=== PATIENT | female | born 1955 | race Caucasian/White ===

== ENCOUNTER 2019-02-28 00:04 | Observation (INO) ==
--- NOTE | 2019-02-28 00:20 | Emergency Department Note ---
Disposition Clinical Impression: Chest pain Qualifiers: Chest pain type: unspecified Qualified Code(s): R07.9 - Chest pain, unspecified Disposition: Admitted As Inpatient Condition: Good Time of Disposition: 02:26 (accepted by Dr. Whelan) Chest Pain HPI - General Chief Complaint: ED Chest Pain Stated Complaint: RA Flare, CP Time Seen by Provider: 02/28/19 00:19 Source: patient Mode of arrival: ambulatory Limitations: no limitations Vital Signs Reviewed: Yes Nursing Notes Reviewed: Yes - History of Present Illness HPI Narrative: Patient is a 63-year-old female presenting with chest pain. Patient with known history of CAD status post stenting, hypertension, hyperlipidemia, DM, as well as rheumatoid arthritis. Patient states for the past 3 days she has been having intermittent episodes of chest heaviness described to be in the left side of her chest, comes on with exertion as well as rest, does not seem to worsen with exertion. Results on its own or with nitroglycerin. Patient states that today around 1999, she began to have worsening chest heaviness, she describes to be on the left side, she took a total of 3 nitroglycerin which resolved her pain. She states she had slight shortness of breath during this time, slight nausea without vomiting. No recent fevers, chills or cough. No abdominal pain. No urinary or bowel changes. Patient also states that she has been having a rheumatoid arthritis flare, she will had prior been on immunologic medications for the past 5 years however one month ago she was taken off this medication secondary to side effects. For the past few weeks she has been having joint pain and aches, she is currently on pain medication, she is been taking this as needed, she states she will not take any steroids. 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 Severity scale (1-10): 4 - Related Data Home Medications Medication Instructions Recorded Confirmed Aspirin Enteric Coated [Aspirin EC] 81 mg PO DAILY 03/25/17 02/28/19 Atorvastatin Calcium [Lipitor] 80 mg PO HS 03/25/17 02/28/19 Cetirizine HCl [All Day Allergy] 10 mg PO DAILY 03/25/17 02/28/19 Cholecalciferol (D-3) [Vitamin D] 2,000 unit PO DAILY 03/25/17 02/28/19 Docusate [Colace] 100 mg PO BID 03/25/17 02/28/19 Fluticasone Propionate Nasal 1 spr NS DAILY PRN 03/25/17 02/28/19 [Flonase] Folic Acid 1 mg PO DAILY 03/25/17 02/28/19 Insulin Glargine [Lantus] 30 unit SQ 2100 03/25/17 02/28/19 Insulin LISPRO [HumaLOG] 5 units SQ TID PRN 03/25/17 02/28/19 Isosorbide MONOnitrate (24 HR) 60 mg PO DAILY 03/25/17 02/28/19 [Imdur] Levothyroxine [Synthroid] 125 mcg PO DAILY 03/25/17 02/28/19 Lidocaine Patch [Lidoderm 5% patch] 1 each TP DAILY 03/25/17 02/28/19 Metoprolol XL (24 HR) Succ [Toprol 25 mg PO DAILY 03/25/17 02/28/19 XL] Montelukast [Singulair] 10 mg PO HS 03/25/17 02/28/19 Nitroglycerin [Nitrostat] 0.4 mg SL Q5M PRN 03/25/17 02/28/19 OxyCODONE/APAP 7.5/325 [Percocet 1 each PO Q6H PRN 03/25/17 02/28/19 7.5/325 MG] Tofacitinib Citrate [Xeljanz Xr] 11 mg PO DAILY 03/25/17 02/28/19 Allergies Allergy/AdvReac Type Severity Reaction Status Date / Time aripiprazole [From Abilify] AdvReac See Verified 02/28/19 00:28 Comments bupropion [From Wellbutrin] AdvReac See Verified 02/28/19 00:28 Comments latex AdvReac Rash Verified 02/28/19 00:28 piroxicam [From Feldene] AdvReac Muscle Pain Verified 02/28/19 00:28 All systems ED: reviewed and negative except as stated. Review of Systems: As Per HPI Constitutional: Denies: fever, chills ENT ED: Denies: congestion Cardiovascular: Reports: chest pain, dyspnea on exertion. Denies: palpitations, syncope Respiratory: Reports: dyspnea. Denies: cough, wheezes, hemoptysis, sputum production Gastrointestinal: Reports: nausea. 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 No apparent distress. Follow commands. Appears stated age. Neck: No JVD. Trachea midline. Neck supple. Eyes: PERRL. No scleral icterus. HENT: Normocephalic and atraumatic. Moist mucus membranes. Cardiovascular: Regular rate and rhythm. Normal S1 and S2. No murmurs appreciated. Normal capillary refill. Extremities well perfused with 2+ distal pulses bilaterally. No edema. Pulmonary: Normal and equal breath sounds bilaterally, anteriorly and posteriorly. No wheezes, rales, or rhonchi. Not in respiratory distress. Speaks in full sentences. Abdomen: Soft, nondistended, without tenderness. No bruits or masses. No guarding or rebound. Neuro: Alert and oriented x3. No slurred speech. No focal deficits noted. Skin: No rashes noted on visualized skin. Musculoskeletal: No bony abnormalities visualized. Moves all extremities. Patient palpation throughout the joints including the shoulders, wrists, ankles and feet Psych: Normal mood. Pleasant. Makes appropriate eye contact. - General Limitations: no limitations General appearance: alert, in no apparent distress Course Vital Signs Temperature 98.4 F 02/28/19 00:06 Pulse Rate 81 02/28/19 00:06 Respiratory Rate 18 02/28/19 00:06 Blood Pressure 138/69 02/28/19 00:06 O2 Sat by Pulse Oximetry 100 02/28/19 00:06 Temperature 98.4 F 02/28/19 00:06 Pulse Rate 81 02/28/19 00:06 Respiratory Rate 18 02/28/19 00:06 Blood Pressure 138/69 02/28/19 00:06 O2 Sat by Pulse Oximetry 100 02/28/19 00:06 Oxygen Delivery Oxygen Delivery Room Air Chest Pain - MDM Narrative Medical decision making narrative: Patient is a 63-year-old feel presenting with chest pain. Patient with history of CAD status post stent, hypertension, hyperlipidemia as well as rheumatoid arthritis. Given aspirin. On examination she is alert and oriented 3, in no acute distress. EKG shows no acute ischemic changes. Chest x-ray shows no ac [place] cardiopulmonary findings. Laboratory work including CBC, BMP and troponin are within normal limits. Patient with no history of DVT, PE, recent leg swelling, long car ride, malignancy. She denies pleuritic chest pain. Given patient's heart score of 5-6, with highly concerning history and story, feels that the patient to be admitted at this point in time for ACS rule out. Patient has otherwise remained stable here in the ER. - Differential Diagnosis Likely: stable angina, unstable angina pectoris, atypical chest pain, st elevation myocardial infraction, costalchondritis, chest pain - Medical Records Medical records reviewed: Yes I reviewed the patient's medical records. - Lab Data Lab results reviewed: Yes I reviewed the patient's lab results. Result diagrams: 02/28/19 00:30 02/28/19 00:30 Lab Results 02/28/19 02/28/19 02/28/19 Range/Units 00:30 00:30 00:30 WBC 6.3 (4.3-11.1) K/mcL RBC 4.22 (3.82-4.97) M/mcL Hgb 12.4 (11.5-15.4) g/dL Hct 37.2 (35.3-44.9) % MCV 88.2 (83.0-100.0) fL MCH 29.4 (28.0-33.3) pg MCHC 33.3 (31.6-35.5) g/dL RDW 12.6 (11.5-14.5) % Plt Count 352 (140-400) K/mcL MPV 10.4 (9.4-12.4) fL Immature Gran % 0.3 (0-4) % Seg Neutrophils % 71.6 % Lymphocytes % 17.5 % Monocytes % 8.9 % Eosinophils % 1.4 % Basophils % 0.3 % Neutrophils # 4.5 (1.6-8.9) K/mcL Lymphocytes # 1.1 (0.6-4.6) K/mcL Monocytes # 0.6 (0.0-1.3) K/mcL Eosinophils # 0.1 (0.0-0.6) K/mcL Basophils # 0.0 (0.0-0.2) K/mcL Sodium 134 L (136-145) mEq/L Potassium 3.9 (3.5-5.1) mEq/L Chloride 98 (98-107) mEq/L Carbon Dioxide 28 (23-29) mEq/L BUN 14 (8-23) mg/dL Creatinine 1.19 (0.60-1.20) mg/dL Est GFR ( Amer) 56 L (> 60) Est GFR (Non-Af Amer) 46 L (> 60) BUN/Creatinine Ratio 12 (6-26) Glucose 277 H (70-105) mg/dL Calculated Osmolality 288 (280-300) Calcium 9.5 (8.6-10.3) mg/dL Troponin I < 0.03 (< 0.04) ng/mL Urine Color (Yellow) Urine Clarity (Clear) Urine pH (5.0-8.0) pH Units Ur Specific [place] (1.010-1.025) Urine Protein (Neg-Trace) mg/dL Urine Glucose (UA) (Normal) mg/dL Urine Ketones (Negative) mg/dL Urine Blood (Negative) Urine Nitrite (Negative) Urine Bilirubin (Negative) Urine Urobilinogen (Normal) mg/dL Ur Leukocyte Esterase (Negative) Urine Microscopic RBC (0-3) per hpf Urine Microscopic WBC (0-3) per hpf Ur Squamous Epith Cells (None-Few) per lpf Urine Bacteria (None-Few) per hpf Hyaline Casts (None-Few) per lpf 02/28/19 Range/Units 00:57 WBC (4.3-11.1) K/mcL RBC (3.82-4.97) M/mcL Hgb (11.5-15.4) g/dL Hct (35.3-44.9) % MCV (83.0-100.0) fL MCH (28.0-33.3) pg MCHC (31.6-35.5) g/dL RDW (11.5-14.5) % Plt Count (140-400) K/mcL MPV (9.4-12.4) fL Immature Gran % (0-4) % Seg Neutrophils % % Lymphocytes % % Monocytes % % Eosinophils % % Basophils % % Neutrophils # (1.6-8.9) K/mcL Lymphocytes # (0.6-4.6) K/mcL Monocytes # (0.0-1.3) K/mcL Eosinophils # (0.0-0.6) K/mcL Basophils # (0.0-0.2) K/mcL Sodium (136-145) mEq/L Potassium (3.5-5.1) mEq/L Chloride (98-107) mEq/L Carbon Dioxide (23-29) mEq/L BUN (8-23) mg/dL Creatinine (0.60-1.20) mg/dL Est GFR ( Amer) (> 60) Est GFR (Non-Af Amer) (> 60) BUN/Creatinine Ratio (6-26) Glucose (70-105) mg/dL Calculated Osmolality (280-300) Calcium (8.6-10.3) mg/dL Troponin I (< 0.04) ng/mL Urine Color Yellow (Yellow) Urine Clarity Cloudy A (Clear) Urine pH 5.5 (5.0-8.0) pH Units Ur Specific [place] 1.027 H (1.010-1.025) Urine Protein Negative (Neg-Trace) mg/dL Urine Glucose (UA) >=1000 H (Normal) mg/dL Urine Ketones Negative (Negative) mg/dL Urine Blood Negative (Negative) Urine Nitrite Negative (Negative) Urine Bilirubin Negative (Negative) Urine Urobilinogen Normal (Normal) mg/dL Ur Leukocyte Esterase Large H (Negative) Urine Microscopic RBC 3-5 H (0-3) per hpf Urine Microscopic WBC TNTC H (0-3) per hpf Ur Squamous Epith Cells Many H (None-Few) per lpf Urine Bacteria Few (None-Few) per hpf Hyaline Casts None Seen (None-Few) per lpf - Radiology Data Radiology results reviewed: Yes I reviewed the patient's radiology results. Chest X-Ray 02/28/19 01:20 IMPRESSION: No acute cardiopulmonary disease. D/ / Nghia Mcconnell MD / Nghia Mcconnell MD Interpreting Provider: Nghia Mcconnell MD - EKG Data EKG attestation: Yes I reviewed and interpreted this EKG. EKG results narrative: EKG obtained at 0015 with ventricular rate of 75, regular rhythm, right axis deviation with right bundle branch block, no ST segment elevation, depression, there are Q waves in lead 2, 3 and aVF, compared to old EKG performed in 7, compares to be completely unchanged. Heart Score - Score History: Highly Suspicious EKG: Non Specific repolarisation Disturbance Age: 45-65 Risk Factors: Equal/Greater than 3 risk factor or history of atherosclerotic disease Troponin: Less than normal limit HEART Score Total: 6
[2019-02-28 01:07] LABS: Basophils % 0.3 %; Eosinophils # 0.1 K/mcL (0.0-0.6); Eosinophils % 1.4 %; Hematocrit 37.2 % (35.3-44.9); Hemoglobin 12.4 g/dL (11.5-15.4); Immature Granulocytes % 0.3 % (0-4); Lymphocytes # 1.1 K/mcL (0.6-4.6); Lymphocytes % 17.5 %; Mean Corpuscular HGB Conc 33.3 g/dL (31.6-35.5); Mean Corpuscular Hemoglobin 29.4 pg (28.0-33.3); Mean Corpuscular Volume 88.2 fL (83.0-100.0); Mean Platelet Volume 10.4 fL (9.4-12.4); Monocytes # 0.6 K/mcL (0.0-1.3); Monocytes % 8.9 %; Neutrophils # 4.5 K/mcL (1.6-8.9); Platelet Count 352 K/mcL (140-400); Red Blood Count 4.22 M/mcL (3.82-4.97); Red Cell Distribution Width 12.6 % (11.5-14.5); Segmented Neutrophils % 71.6 %; White Blood Count 6.3 K/mcL (4.3-11.1)
[2019-02-28 01:20] LABS: Bilirubin,Urine Negative (Negative); Blood,Urine Negative (Negative); Clarity,Urine Cloudy (Clear); Color,Urine Yellow (Yellow); Glucose,Urine (UA) >=1000 mg/dL (Normal); Ketones,Urine Negative (Negative); Leukocyte Esterase,Urine Large (Negative); Nitrite,Urine Negative (Negative); PH,Urine 5.5 pH Units (5.0-8.0); Protein,Urine Negative (Neg-Trace); Specific Gravity,Urine 1.027 (1.010-1.025); Urobilinogen,Urine Normal (Normal)
[2019-02-28 01:21] LABS: Bacteria,Urine Few per hpf (None-Few); Hyaline Casts,Urine None Seen per lpf (None-Few); Squamous Epithelial Cell,Urine Many per lpf (None-Few); WBC,Urine TNTC per hpf (0-3)
[2019-02-28 01:28] LABS: Calcium 9.5 mg/dL (8.6-10.3); Potassium 3.9 mEq/L (3.5-5.1)
[2019-02-28] MEDS ORDERED: Aspirin 81 MG TAB.CHEW PO ONE (02:41)
--- NOTE | 2019-02-28 02:46 | Emergency Department Note ---
Disposition Clinical Impression: Chest pain Qualifiers: Chest pain type: unspecified Qualified Code(s): R07.9 - Chest pain, unspecified Disposition: Admitted As Inpatient Condition: Good Referrals: NONE,PCP [Primary Care Provider] - Forms: ED Satisfaction Letter Time of Disposition: 02:26 General Adult HPI - General Chief complaint: ED Chest Pain Stated complaint: RA Flare, CP Time Seen by Provider: 02/28/19 00:19 Source: patient Mode of arrival: ambulatory Limitations: no limitations Nursing Notes Reviewed: Yes Vital Signs Reviewed: Yes - History of Present Illness Pain Scale: 4 - Related Data Home Medications Medication Instructions Recorded Confirmed Aspirin Enteric Coated [Aspirin EC] 81 mg PO DAILY 03/25/17 02/28/19 Atorvastatin Calcium [Lipitor] 80 mg PO HS 03/25/17 02/28/19 Cetirizine HCl [All Day Allergy] 10 mg PO DAILY 03/25/17 02/28/19 Cholecalciferol (D-3) [Vitamin D] 2,000 unit PO DAILY 03/25/17 02/28/19 Docusate [Colace] 100 mg PO BID 03/25/17 02/28/19 Fluticasone Propionate Nasal 1 spr NS DAILY PRN 03/25/17 02/28/19 [Flonase] Folic Acid 1 mg PO DAILY 03/25/17 02/28/19 Insulin Glargine [Lantus] 30 unit SQ 2100 03/25/17 02/28/19 Insulin LISPRO [HumaLOG] 5 units SQ TID PRN 03/25/17 02/28/19 Isosorbide MONOnitrate (24 HR) 60 mg PO DAILY 03/25/17 02/28/19 [Imdur] Levothyroxine [Synthroid] 125 mcg PO DAILY 03/25/17 02/28/19 Lidocaine Patch [Lidoderm 5% patch] 1 each TP DAILY 03/25/17 02/28/19 Metoprolol XL (24 HR) Succ [Toprol 25 mg PO DAILY 03/25/17 02/28/19 XL] Montelukast [Singulair] 10 mg PO HS 03/25/17 02/28/19 Nitroglycerin [Nitrostat] 0.4 mg SL Q5M PRN 03/25/17 02/28/19 OxyCODONE/APAP 7.5/325 [Percocet 1 each PO Q6H PRN 03/25/17 02/28/19 7.5/325 MG] Tofacitinib Citrate [Xeljanz Xr] 11 mg PO DAILY 03/25/17 02/28/19 Allergies Allergy/AdvReac Type Severity Reaction Status Date / Time aripiprazole [From Abilify] AdvReac See Verified 02/28/19 00:28 Comments bupropion [From Wellbutrin] AdvReac See Verified 02/28/19 00:28 Comments latex AdvReac Rash Verified 02/28/19 00:28 piroxicam [From Feldene] AdvReac Muscle Pain Verified 02/28/19 00:28 Constitutional: Denies: fever, chills ENT ED: Denies: congestion Cardiovascular: Reports: chest pain, dyspnea on exertion. Denies: palpitations, syncope Respiratory: Reports: dyspnea. Denies: cough, wheezes, hemoptysis, sputum production Gastrointestinal: Reports: nausea. 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 - Social History Smoking Status: Former smoker Smokeless Tobacco Status: No Alcohol use: Reports: none Drug use: Reports: none Physical Exam - General Limitations: no limitations General appearance: alert, in no apparent distress Course Vital Signs Temperature 98.4 F 02/28/19 00:06 Pulse Rate 81 02/28/19 00:06 Respiratory Rate 18 02/28/19 00:06 Blood Pressure 138/69 02/28/19 00:06 O2 Sat by Pulse Oximetry 100 02/28/19 00:06 Temperature 98.4 F 02/28/19 00:06 Pulse Rate 81 02/28/19 00:06 Respiratory Rate 18 02/28/19 00:06 Blood Pressure 138/69 02/28/19 00:06 O2 Sat by Pulse Oximetry 100 02/28/19 00:06 Oxygen Delivery Oxygen Delivery Room Air Medical Decision Making - Medical Records Medical records reviewed: Yes I reviewed the patient's medical records. - Lab Data Lab results reviewed: Yes I reviewed the patient's lab results. Result diagrams: 02/28/19 00:30 02/28/19 00:30 Lab Results 02/28/19 02/28/19 02/28/19 Range/Units 00:30 00:30 00:30 WBC 6.3 (4.3-11.1) K/mcL RBC 4.22 (3.82-4.97) M/mcL Hgb 12.4 (11.5-15.4) g/dL Hct 37.2 (35.3-44.9) % MCV 88.2 (83.0-100.0) fL MCH 29.4 (28.0-33.3) pg MCHC 33.3 (31.6-35.5) g/dL RDW 12.6 (11.5-14.5) % Plt Count 352 (140-400) K/mcL MPV 10.4 (9.4-12.4) fL Immature Gran % 0.3 (0-4) % Seg Neutrophils % 71.6 % Lymphocytes % 17.5 % Monocytes % 8.9 % Eosinophils % 1.4 % Basophils % 0.3 % Neutrophils # 4.5 (1.6-8.9) K/mcL Lymphocytes # 1.1 (0.6-4.6) K/mcL Monocytes # 0.6 (0.0-1.3) K/mcL Eosinophils # 0.1 (0.0-0.6) K/mcL Basophils # 0.0 (0.0-0.2) K/mcL Sodium 134 L (136-145) mEq/L Potassium 3.9 (3.5-5.1) mEq/L Chloride 98 (98-107) mEq/L Carbon Dioxide 28 (23-29) mEq/L BUN 14 (8-23) mg/dL Creatinine 1.19 (0.60-1.20) mg/dL Est GFR ( Amer) 56 L (> 60) Est GFR (Non-Af Amer) 46 L (> 60) BUN/Creatinine Ratio 12 (6-26) Glucose 277 H (70-105) mg/dL Calculated Osmolality 288 (280-300) Calcium 9.5 (8.6-10.3) mg/dL Troponin I < 0.03 (< 0.04) ng/mL Urine Color (Yellow) Urine Clarity (Clear) Urine pH (5.0-8.0) pH Units Ur Specific [place] (1.010-1.025) Urine Protein (Neg-Trace) mg/dL Urine Glucose (UA) (Normal) mg/dL Urine Ketones (Negative) mg/dL Urine Blood (Negative) Urine Nitrite (Negative) Urine Bilirubin (Negative) Urine Urobilinogen (Normal) mg/dL Ur Leukocyte Esterase (Negative) Urine Microscopic RBC (0-3) per hpf Urine Microscopic WBC (0-3) per hpf Ur Squamous Epith Cells (None-Few) per lpf Urine Bacteria (None-Few) per hpf Hyaline Casts (None-Few) per lpf 02/28/19 Range/Units 00:57 WBC (4.3-11.1) K/mcL RBC (3.82-4.97) M/mcL Hgb (11.5-15.4) g/dL Hct (35.3-44.9) % MCV (83.0-100.0) fL MCH (28.0-33.3) pg MCHC (31.6-35.5) g/dL RDW (11.5-14.5) % Plt Count (140-400) K/mcL MPV (9.4-12.4) fL Immature Gran % (0-4) % Seg Neutrophils % % Lymphocytes % % Monocytes % % Eosinophils % % Basophils % % Neutrophils # (1.6-8.9) K/mcL Lymphocytes # (0.6-4.6) K/mcL Monocytes # (0.0-1.3) K/mcL Eosinophils # (0.0-0.6) K/mcL Basophils # (0.0-0.2) K/mcL Sodium (136-145) mEq/L Potassium (3.5-5.1) mEq/L Chloride (98-107) mEq/L Carbon Dioxide (23-29) mEq/L BUN (8-23) mg/dL Creatinine (0.60-1.20) mg/dL Est GFR ( Amer) (> 60) Est GFR (Non-Af Amer) (> 60) BUN/Creatinine Ratio (6-26) Glucose (70-105) mg/dL Calculated Osmolality (280-300) Calcium (8.6-10.3) mg/dL Troponin I (< 0.04) ng/mL Urine Color Yellow (Yellow) Urine Clarity Cloudy A (Clear) Urine pH 5.5 (5.0-8.0) pH Units Ur Specific [place] 1.027 H (1.010-1.025) Urine Protein Negative (Neg-Trace) mg/dL Urine Glucose (UA) >=1000 H (Normal) mg/dL Urine Ketones Negative (Negative) mg/dL Urine Blood Negative (Negative) Urine Nitrite Negative (Negative) Urine Bilirubin Negative (Negative) Urine Urobilinogen Normal (Normal) mg/dL Ur Leukocyte Esterase Large H (Negative) Urine Microscopic RBC 3-5 H (0-3) per hpf Urine Microscopic WBC TNTC H (0-3) per hpf Ur Squamous Epith Cells Many H (None-Few) per lpf Urine Bacteria Few (None-Few) per hpf Hyaline Casts None Seen (None-Few) per lpf - Radiology Data Radiology results reviewed: Yes I reviewed the patient's radiology results. Chest X-Ray 02/28/19 01:20 IMPRESSION: No acute cardiopulmonary disease. D/ / Nghia Mcconnell MD / Nghia Mcconnell MD Interpreting Provider: Nghia Mcconnell MD - EKG Data EKG #1 EKG attestation: Yes I reviewed and interpreted this EKG. EKG results narrative: EKG shows normal sinus rhythm with ventricular rate of 75. Right bundle branch block. No significant ST segment elevation or depression. No arrhythmia or ectopy. Unchanged from prior EKG dated 03/07/2017. Attestation Statement - Attestation Attestation: I, Luis Manuel Kiran MD, personally evaluated this patient and discussed their management with the resident physician. I reviewed the resident's note and agree with the documented findings, medical decision making, and plan of care. I reviewed the residents documentation and agree with the residents assessment and plan of care. I have personally had face to face time with the patient. I personally supervised and was present for the galvez/critical portions of the following procedures completed by the resident: EKG interpretation. 63-year-old female presents to the emergency department with a complaint of intermittent chest pain over the past 3 days prior to arrival. She describes the pain as a pressure or heaviness in her mid chest. Patient does have a prior history of AL and coronary artery stents. She is diabetic. She also complains of having a flare of her rheumatoid arthritis. She had to stop her medications about a month ago because of adverse side effects. Since then she has had increasing pain primarily in her hands and wrist and shoulders and feet. She has taken nitroglycerin each day over the past 3 days. This evening the pain was worse and she took 3 nitroglycerin which did relieve the discomfort. On examination patient is a well-developed well-nourished female in no acute distress. She is alert and oriented 3. There is no cyanosis or diaphoresis. Chest is nontender to palpation. Breath sounds are clear and equal bilaterally. Heart regular rate and rhythm. Abdomen soft and nontender with normal bowel sounds. EKG shows normal sinus rhythm with ventricular rate of 75. Right bundle branch block. No significant ST segment elevation or depression. No arrhythmia or ectopy. Unchanged from prior EKG dated 03/07/2017. Chest x-ray negative. Labs reviewed. Troponin normal. The hospitalist, Dr. Whelan, was consulted and accepted admission of the patient.
[2019-02-28] MEDS ORDERED: Naloxone 0.4 MG/ML INJ IVP PRN (09:22)
--- NOTE | 2019-02-28 09:27 | Internal Med History&Physical ---
Date of Encounter: 02/28/19 Time of Encounter: 08:15 Internal Medicine - H&P: HPI Admitted From: Emergency Dept Plans for Post Hospital Care: Home History of present illness: Ms. Serna is a 63 year old female history of asthma, CHF, CAD, diabetes, fibromyalgia, prior history of KS, and hypothyroidism as well as rheumatoid arthritis who presented to the ED with complaints of chest discomfort which she describes as heaviness and pain for 3 days. She stated the pain is localized to the left side of her chest similar to her prior episodes of KS as such she tried nitroglycerin tablets. She stated the pain lasted 20 minutes and she to 3 nitro glycerin tablets which abated the pain. Patient stated that overall her rheumatoid arthritis has been flaring because have physician discontinued her Xeljanz about a month ago due to her complaints of having hair loss and scalp blisters. She denies any recent steroid therapy but reports pain in bilateral shoulders and hand with associated stiffness. Multivitamin she woke up by the ED was unremarkable CBC, BMP revealed mild hyponatremia as well as elevated blood glucose, and had initial troponin was negative. Patient UA does reveal glucosuria, high specific gravity large leukocyte esterase and too numerous to count WBCs however she denies dysuria. Other work up at the ED was an EKG which revealed sinus rhythm with right bundle branch block which is unchanged from EKG dated 02/08/2015 which also had the right bundle branch block and had chest x- ray was unremarkable with no acute cardiopulmonary abnormalities. Patient stated also that she is on a insulin pump for her diabetes and that basal rates was currently being adjusted however she feels that her blood sugar has been elevated and her diabetes uncontrolled. She was initially unwilling to come off her insulin pump so that we could manage her diabetes per protocol. Upon further deliberations she is agreeable to come off the insulin pump so we can manage her diabetes with insulin basal short-acting subcutaneously per patsy col Past Med Surg Social Fam HX - Past Medical History Medical history: asthma, CHF, coronary artery disease, diabetes, fibromyalgia, myocardial infarction, RA, thyroid disease, other Additional medical history: neuropathy, retinopathy, gastroparesis Psychiatric history: no psych history - Past Surgical History Surgical History: , cholecystectomy Additional surgical history: Heart cath, cardiac stent - Social History Smoking Status: Former smoker Smokeless Tobacco Status: No Alcohol use: none Drug use: none - Family History Mother Living Status: Hx Family Respiratory Disorders: Yes (COPD) Father Living Status: Hx Family Cancer: Yes (prostate, lung) Internal Medicine - H&P: Meds Aspirin Enteric Coated [Aspirin EC] 81 mg PO DAILY 03/25/17 [History] Atorvastatin Calcium [Lipitor] 80 mg PO HS 03/25/17 [History] Cetirizine HCl [All Day Allergy] 10 mg PO DAILY 03/25/17 [History] Cholecalciferol (D-3) [Vitamin D] 2,000 unit PO DAILY 03/25/17 [History] Docusate [Colace] 100 mg PO BID 03/25/17 [History] Fluticasone Propionate Nasal [Flonase] 1 spr NS DAILY PRN 03/25/17 [History] Folic Acid 1 mg PO DAILY 03/25/17 [History] Insulin Glargine [Lantus] 30 unit SQ 2100 03/25/17 [History] Insulin LISPRO [HumaLOG] 5 units SQ TID PRN 03/25/17 [History] Isosorbide MONOnitrate (24 HR) [Imdur] 60 mg PO DAILY 03/25/17 [History] Levothyroxine [Synthroid] 125 mcg PO DAILY 03/25/17 [History] Lidocaine Patch [Lidoderm 5% patch] 1 each TP DAILY 03/25/17 [History] Montelukast [Singulair] 10 mg PO HS 03/25/17 [History] Nitroglycerin [Nitrostat] 0.4 mg SL Q5M PRN 03/25/17 [History] OxyCODONE/APAP 7.5/325 [Percocet 7.5/325 MG] 1 each PO Q6H PRN 03/25/17 [History] Tofacitinib Citrate [Xeljanz Xr] 11 mg PO DAILY 03/25/17 [History] Metoprolol Tartrate 50 mg PO DAILY 02/28/19 [History] Omeprazole [PriLOSEC] 40 mg PO DAILY 02/28/19 [History] Tizanidine HCl [Zanaflex] 4 mg PO TID PRN 02/28/19 [History] hydroCHLOROthiazide [Hydrochlorothiazide] 12.5 mg PO DAILY 02/28/19 [History] Allergy/AdvReac Type Severity Reaction Status Date / Time aripiprazole [From Abilify] AdvReac See Verified 02/28/19 00:28 Comments bupropion [From Wellbutrin] AdvReac See Verified 02/28/19 00:28 Comments latex AdvReac Rash Verified 02/28/19 00:28 piroxicam [From Feldene] AdvReac Muscle Pain Verified 02/28/19 00:28 All Systems PM: A 10-system review of systems was performed and is negative for pertinent findings except as documented above in the HPI. Review of systems: GENERAL: Denies fever, chills, admits to fatigue and generalized weakness and malaise DERMATOLOGIC: Denies itch, rash or lesions except for her rheumatic joints HEENT: Denies headache, blurriness, diplopia or decreased visual acuity, ear pain, tinnitus, rhinorrhea, sinus tenderness or sore throat RESPIRATORY: Denies SOB, cough, hemoptysis or pleuritic chest pain CARDIOVASCULAR: Admits to chest pain, denies LE edema, palpitation or syncope GASTRO INTESTINAL: Denies cramps, nausea/vomiting, diarrhea or constipation, melena MUSCULOSKELATAL: Reports muscle pain/weakness, joint tenderness/pain and swelling PSYCH: Denies worsening anxiety, or depression NEURO: Denies vertigo, dizziness, or ataxia GENITURINARY: Denies dysuria, nocturia or urinary incontinence - Constitutional Vitals: Temp Pulse Resp BP Pulse Ox 97.9 F 64 16 104/59 97 02/28/19 06:44 02/28/19 06:44 02/28/19 06:44 02/28/19 06:44 02/28/19 06:44 Exam: GENERAL: NAD, A&O x3, pleasant and conversant SKIN: No skin lesions or rashes, non-jaundiced EYES: EOMI, PERRLA, no sclera icterus HENT: Head atraumatic, no facial asymmetry, frontal and maxillary sinus non- tender, normal hearing, oropharynx and mucosa moist and without any exudates NECK: No cervical lymphadenopathy, trachea midline, thyroid is palpable does not appear enlarged LUNGS: vesicular breath sounds, clear to auscultation, no wheeze, rhonchi, rales or crackles. Non labored respirations HEART: Normal rate and rhythm, no murmurs or rubs, left-sided chest pain was reproducible ABDOMEN: soft, non-tender, non-distended, bowel sounds x 4 normoactive EXTRMITIES: No LE asymmetry, bilateral ulna deviation noted, soft tissue swelling noted in the PIP joints bilaterally, left foot second and third digits deformities noted, No LE edema, pedal pulses 1+ and radial pulses 2 + and equal bilaterally NEURO: Speech and comprehension appears intact. PSYCH: Cooperative, non- anxious or irritable, mood and affect is appropriate Internal Med - H&P Results - Labs CBC & Chem 7: 02/28/19 00:30 02/28/19 00:30 Labs: Short CBC 02/28/19 Range/Units 00:30 WBC 6.3 (4.3-11.1) K/mcL Hgb 12.4 (11.5-15.4) g/dL Hct 37.2 (35.3-44.9) % Plt Count 352 (140-400) K/mcL Neutrophils # 4.5 (1.6-8.9) K/mcL BMP 02/28/19 00:30 Sodium 134 L Potassium 3.9 Chloride 98 Carbon Dioxide 28 BUN 14 Creatinine 1.19 Glucose 277 H Calcium 9.5 Cardiac Enzymes 02/28/19 02/28/19 Range/Units 00:30 06:15 Troponin I < 0.03 < 0.03 (< 0.04) ng/mL Urine 02/28/19 Range/Units 00:57 Urine Color Yellow (Yellow) Urine Clarity Cloudy A (Clear) Urine pH 5.5 (5.0-8.0) pH Units Ur Specific [place] 1.027 H (1.010-1.025) Urine Protein Negative (Neg-Trace) mg/dL Urine Glucose (UA) >=1000 H (Normal) mg/dL - Impressions ITS Impressions Chest X-Ray 02/28/19 01:20 IMPRESSION: No acute cardiopulmonary disease. D/ / 02/28/2019 07:30:45 Nghia Mcconnell MD / [facility] [email or web address] Interpreting Provider: Nghia Mcconnell MD - Assessment and Plan (1) Chest pain Current Visit: Yes Status: Acute Assessment and plan: Troponin 1 was negative we will trend troponin had chest pain was reproducible suspect in conjunction of rheumatic flare EKG was unremarkable. Patient has been admitted for acute coronary syndrome rule out Qualifiers: Chest pain type: unspecified Qualified Code(s): R07.9 - Chest pain, unspecified (2) CAD (coronary artery disease) Current Visit: Yes Status: Acute Assessment and plan: Patient with prior history of KS as stated above hospitalized for rule out acute coronary syndrome, is on metoprolol aspirin and nitroglycerin does not appear to be on any lipid therapy. Check a lipid profile tomorrow morning as well as an LFTs she is an ideal candidate for statin therapy given her increased cardiovascular risk Qualifiers: Coronary Disease-Associated Artery/Lesion type: [place] artery [place] vs. transplanted heart: [place] heart Associated angina: with stable angina Qualified Code(s): I25.118 - Atherosclerotic heart disease of [place] coronary artery with other forms of angina pectoris (3) Diabetes Current Visit: Yes Status: Acute Qualifiers: Diabetes mellitus type: type 2 Diabetes mellitus mcc insulin use: with terminal gauger supervisor use Diabetes mellitus complication status: without complication Qualified Code(s): E11.9 - Type 2 diabetes mellitus without complications; Z79.4 - terminal gauger supervisor (current) use of insulin (4) HTN (hypertension) Current Visit: Yes Status: Acute Assessment and plan: Normotensive resume home meds metoprolol, hydrochlorothiazide Qualifiers: Hypertension type: essential hypertension Qualified Code(s): I10 - Essential (primary) hypertension (5) CHF (congestive heart failure) Current Visit: Yes Status: Acute Assessment and plan: stable and chronic she does not appear to be volume overloaded this is no CHF exacerbation she is on metoprolol will monitor I's and O's and daily weights Qualifiers: Heart failure type: systolic Heart failure chronicity: chronic Qualified Code(s): I50.22 - Chronic systolic (congestive) heart failure (6) Rheumatoid arthritis Current Visit: Yes Status: Acute Assessment and plan: Patient stated that she has had rheumatic flares since discontinuation of xeljenz, the ED notes 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 She can follow some outpatient upon discharge Qualifiers: Rheumatoid arthritis location: multiple sites Rheumatoid factor presence: unspecified presence Qualified Code(s): M06.9 - Rheumatoid arthritis, unspecified (7) Fibromyalgia Current Visit: Yes Status: Acute Assessment and plan: stable and chronic (8) DVT prophylaxis Current Visit: Yes Status: Acute Assessment and plan: Heparin subcutaneous - Time Spent With Patient Total time spent is greater than 50% in coordination of care (as documented) at patient's floor/unit and/or counseling patient:
[2019-02-28] MEDS ORDERED: D5% in Water 1,000 ML IVC PRN (09:29)
[2019-02-28] MEDS ORDERED: *HR* Dextrose 50 % in Water (Syg) 50 ML SYRINGE IVP PRN (09:29)
[2019-02-28] MEDS ORDERED: Dextrose Gel 15 GM/37.5 ML TUBE PO PRN ×2 (09:29)
[2019-02-28] MEDS ORDERED: Fluticasone Propionate Nasal 50 MCG/SPRAY BOTTLE NS PRN (10:32)
[2019-02-28] MEDS ORDERED: Nitroglycerin 0.4 MG TAB.SUBL SL PRN (10:32)
[2019-02-28] MEDS ORDERED: tiZANidine 4 MG TABLET PO PRN (10:32)
--- NOTE | 2019-02-28 10:42 | Electrocardiograph Report ---
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
[2019-02-28] MEDS: Ondansetron 4 MG/2 ML VIAL IVP PRN (11:57)
[2019-02-28] MEDS: Aspirin Enteric Coated 81 MG Tablet PO SCH (12:09)
[2019-02-28] MEDS: Folic Acid 1 MG TABLET PO SCH (12:10)
[2019-02-28] MEDS: Cholecalciferol (D-3) 1,000 UNIT (25MCG) TABLET PO SCH (12:10)
[2019-02-28] MEDS: Loratadine 10 MG TABLET PO SCH (12:10)
[2019-02-28] MEDS: hydroCHLOROthiazide 25 MG TABLET PO SCH (12:14)
[2019-02-28] MEDS: Isosorbide MONOnitrate (24 HR) 60 MG TAB.ER.24H PO SCH (12:15)
[2019-02-28] MEDS: Insulin LISPRO 300 UNITS/3 ML VIAL SQ SCH ×5 (12:29→21:30)
[2019-02-28] MEDS: *HR* Heparin 5,000 UNIT/ML VIAL SQ SCH (21:31)
[2019-02-28] MEDS ORDERED: Acetaminophen IV 1,000 MG/100 ML INFUS..BTL IVPB ONE (21:54)
[2019-02-28] MEDS: Insulin DETEMIR 100 UNIT/ML X5UNITS SQ SCH (21:55)
[2019-02-28] MEDS ORDERED: Insulin Human Regular 10 UNIT in 0.9 % Sodium Chloride 10 ML IV ONE (23:15)
[2019-03-01 02:05] LABS: Basophils % 0.4 %; Eosinophils # 0.1 K/mcL (0.0-0.6); Hematocrit 35.3 % (35.3-44.9); Hemoglobin 11.4 g/dL (11.5-15.4); Immature Granulocytes % 0.6 % (0-4); Lymphocytes # 0.9 K/mcL (0.6-4.6); Lymphocytes % 17.9 %; Mean Corpuscular HGB Conc 32.3 g/dL (31.6-35.5); Mean Corpuscular Hemoglobin 28.7 pg (28.0-33.3); Mean Corpuscular Volume 88.9 fL (83.0-100.0); Mean Platelet Volume 10.1 fL (9.4-12.4); Monocytes # 0.5 K/mcL (0.0-1.3); Monocytes % 10.4 %; Neutrophils # 3.6 K/mcL (1.6-8.9); Platelet Count 324 K/mcL (140-400); Red Blood Count 3.97 M/mcL (3.82-4.97); Red Cell Distribution Width 12.6 % (11.5-14.5); Segmented Neutrophils % 69.7 %; White Blood Count 5.2 K/mcL (4.3-11.1)
[2019-03-01 02:28] LABS: Albumin 3.3 g/dL (3.5-5.7); Bilirubin,Indirect 0.3 mg/dL (0.0-1.2); Bilirubin,Total 0.3 mg/dL (0.3-1.0); Chol/HDL Ratio 2.6 (0-4.9); Globulin 3.2 g/dL (2.4-3.5); Total Protein 6.5 g/dL (6.4-8.9)
[2019-03-01 02:57] LABS: Calcium 9.6 mg/dL (8.6-10.3); Magnesium 1.9 mg/dL (1.6-2.6); Potassium 3.7 mEq/L (3.5-5.1)
[2019-03-01] MEDS: *HR* Heparin 5,000 UNIT/ML VIAL SQ SCH ×3 (05:14→20:33)
[2019-03-01] MEDS ORDERED: Insulin Human Regular 10 UNIT in 0.9 % Sodium Chloride 10 ML IV ONE (05:25)
[2019-03-01] MEDS ORDERED: Folic Acid 1 MG TABLET PO SCH (09:00)
[2019-03-01] MEDS ORDERED: Isosorbide MONOnitrate (24 HR) 60 MG TAB.ER.24H PO SCH (09:00)
[2019-03-01] MEDS ORDERED: METOPROLOL TARTRATE 50 MG PO SCH (09:00)
[2019-03-01] MEDS ORDERED: Aspirin Enteric Coated 81 MG Tablet PO SCH (09:00)
[2019-03-01] MEDS ORDERED: NON-FORMULARY MEDICATION 1 EACH EACH (Cetirizine Hcl [All Day Allergy] 10 MG) PO SCH (09:00)
[2019-03-01] MEDS ORDERED: NON-FORMULARY MEDICATION 1 EACH EACH (Hydrochlorothiazide [Hydrochlorothiazide] 12.5 MG) PO SCH (09:00)
[2019-03-01] MEDS ORDERED: Cholecalciferol (D-3) 1,000 UNIT (25MCG) TABLET PO SCH (09:00)
[2019-03-01] MEDS ORDERED: NON-FORMULARY MEDICATION 1 EACH EACH (Omeprazole [Prilosec] 40 MG) PO SCH (09:00)
[2019-03-01 09:12] LABS: Estimated Average Glucose 240 mg/dl
[2019-03-01] MEDS ORDERED: Nitroglycerin 1 INCH/GM PACKET TP STA (09:41)
[2019-03-01] MEDS ORDERED: Nitroglycerin 1 INCH/GM PACKET ONE (09:45)
[2019-03-01] MEDS: Insulin LISPRO 300 UNITS/3 ML VIAL SQ SCH ×7 (09:51→20:31)
[2019-03-01] MEDS: Ondansetron 4 MG/2 ML VIAL IVP PRN (09:56)
[2019-03-01] MEDS: Loratadine 10 MG TABLET PO SCH (09:57)
[2019-03-01] MEDS: Folic Acid 1 MG TABLET PO SCH (09:57)
[2019-03-01] MEDS: Isosorbide MONOnitrate (24 HR) 60 MG TAB.ER.24H PO SCH (09:57)
[2019-03-01] MEDS: Cholecalciferol (D-3) 1,000 UNIT (25MCG) TABLET PO SCH (09:58)
[2019-03-01] MEDS: hydroCHLOROthiazide 25 MG TABLET PO SCH (10:02)
[2019-03-01] MEDS: Aspirin Enteric Coated 81 MG Tablet PO SCH (10:04)
[2019-03-01] MEDS ORDERED: Isovue-370 500 ML BOTTLE IVP ONE (10:18)
[2019-03-01] MEDS: *HR* OxyCODONE/APAP 7.5/325 TABLET PO PRN ×2 (10:28→17:06)
[2019-03-01] MEDS ORDERED: Ringers Solution, Lactated 1,000 ML IVC SCH (11:30)
--- NOTE | 2019-03-01 14:37 | Cardiology Consult Note ---
<Christopher Yeung Monster - Last Filed: 03/01/19 14:31> Date of Encounter: 03/01/19 Time of Encounter: 13:00 Assessment and Plan (1) Chest pain Current Visit: Yes Status: Acute C/o chest pain similar to previous [place]. EKG with no acute ST changes. Troponin negative. Prior testing: [facility] 10/2013: LM - nl. LAD - 30% proximal, 50% mid. D1 - 50% stenosis (small vessel). CX - mid 100%. OM2 fills via left to left collaterals. RCA - mid 99% stenosis (JUAN ANTONIO placed). [facility]TE 12/2013:EF 60%. Mild MR and TR. Mild pulmonary hypertension. Stress test 07/2014: Large sized, severe intensity partially reversible in the inferior and inferolateral segments. Moderate buster-infarct ischemia. Continue NTG PRN today. Hold at midnight for stress test in the morning. Patient agrees with plan. Currently pain free. Asa, statin, bb. Qualifiers: Chest pain type: unspecified Qualified Code(s): R07.9 - Chest pain, unspe cified (2) CAD (coronary artery disease) Current Visit: Yes Status: Acute See plan above. Qualifiers: Coronary Disease-Associated Artery/Lesion type: [place] artery [place] vs. transplanted heart: [place] heart Associated angina: with stable angina Qualified Code(s): I25.118 - Atherosclerotic heart disease of [place] coronary artery with other forms of angina pectoris Discussion w patient/family: The assessment and plan as outlined above was discussed with the patient and/or family members who expressed understanding and agreement. All questions were answered. Thank you for involving us in the care of your patient. Please call with any questions. History of Present Illness Consult date: 03/01/19 Requesting physician: Dave Ivory Consult reason: chest pain Chief complaint: chest pain for four days History of present illness: Ms. Serna is a 63 year old female with past medical history type I DM, RA, HTN, and [place] s/p PCI to the RCA in 2013 who presents with chest discomfort and fatigue. States that she recently stopped taking her RA medication after developing an allergic reaction when she noticed she was aching all over. Her blood sugars then started to fluctuate up into the 300-400 range. On Tuesday she woke up with pressure across her chest. She took SL NTG with some relief. The pain and nausea returned. States that the pain has continued intermittently until this afternoon. She now has a lidocaine patch and NTG patch on her chest. She is very upset about running out of insulin in her insulin pump. Past Med Surg Social Fam HX - Past Medical History Medical history: asthma, CHF, coronary artery disease, diabetes (typeI), fibromyalgia, myocardial infarction, RA, thyroid disease, other Additional medical history: neuropathy, retinopathy, gastroparesis Psychiatric history: no psych history - Past Surgical History Surgical History: , cholecystectomy Additional surgical history: Heart cath, cardiac stent - Social History Smoking Status: Former smoker Smokeless Tobacco Status: No Alcohol use: none Drug use: none - Family History Mother Living Status: Hx Family Respiratory Disorders: Yes (COPD) Father Living Status: Hx Family Cancer: Yes (prostate, lung) Medications and Allergies Aspirin Enteric Coated [Aspirin EC] 81 mg PO DAILY 03/25/17 [History] Atorvastatin Calcium [Lipitor] 80 mg PO HS 03/25/17 [History] Cetirizine HCl [All Day Allergy] 10 mg PO DAILY 03/25/17 [History] Cholecalciferol (D-3) [Vitamin D] 2,000 unit PO DAILY 03/25/17 [History] Docusate [Colace] 100 mg PO BID 03/25/17 [History] Fluticasone Propionate Nasal [Flonase] 1 spr NS DAILY PRN 03/25/17 [History] Folic Acid 1 mg PO DAILY 03/25/17 [History] Insulin LISPRO [HumaLOG] 5 units SQ TID PRN 03/25/17 [History] Isosorbide MONOnitrate (24 HR) [Imdur] 60 mg PO DAILY 03/25/17 [History] Montelukast [Singulair] 10 mg PO HS 03/25/17 [History] Nitroglycerin [Nitrostat] 0.4 mg SL Q5M PRN 03/25/17 [History] OxyCODONE/APAP 7.5/325 [Percocet 7.5/325 MG] 1 each PO Q6H PRN 03/25/17 [History] Tofacitinib Citrate [Xeljanz Xr] 11 mg PO DAILY 03/25/17 [History] Omeprazole [PriLOSEC] 40 mg PO DAILY 02/28/19 [History] Tizanidine HCl [Zanaflex] 4 mg PO TID PRN 02/28/19 [History] hydroCHLOROthiazide [Hydrochlorothiazide] 12.5 mg PO DAILY 02/28/19 [History] Levothyroxine [Synthroid] 100 mcg PO 0630 03/01/19 [History] Metoprolol Tartrate 50 mg PO DAILY 03/01/19 [History] Allergy/AdvReac Type Severity Reaction Status Date / Time aripiprazole [From Abilify] AdvReac See Verified 03/01/19 10:57 Comments bupropion [From Wellbutrin] AdvReac See Verified 03/01/19 10:57 Comments latex AdvReac Rash Verified 03/01/19 10:57 piroxicam [From Feldene] AdvReac Muscle Pain Verified 03/01/19 10:57 All Systems Review: The remainder of the systems were reviewed and are negative Physical Examination Vital Signs, Last 4 Hours Temp Pulse Resp BP Pulse Ox 03/01/19 11:08 98.4 F 101 18 119/55 93 General: Conversant, No Apparent Distress HEENT: Atraumatic, Normocephaly, Mucus Membranes Moist Neck: No JVD, Normal carotid pulses Cardiac: Reg Rate and Rhythm, Normal S1 and S2, No Murmur Lungs: Normal Breath Sounds, No Wheeze, Rales, Rhonchi Neuro: Alert and responsive, No focal deficits noted Abdomen: Soft, Non-Tender Skin: No rashes noted on visualized skin Musculoskeletal: No Chest Wall Tenderness Extremities: No Clubbing, No Cyanosis, No Edema, Normal Pulses Results 03/01/19 01:19 03/01/19 01:19 Lab Results 03/01/19 03/01/19 03/01/19 01:19 01:19 01:19 WBC 5.2 Hgb 11.4 L Hct 35.3 Plt Count 324 Sodium 139 Potassium 3.7 Chloride 99 Carbon Dioxide 30 H BUN 17 Creatinine 1.20 Glucose 232 H Calcium 9.6 Magnesium 1.9 Total Bilirubin 0.3 AST 12 L ALT 8 Alkaline Phosphatase 31 L - EKG Interpretation EKG results cardiology: personally reviewed Consult Discharge Plan - Plan Referrals: Arnie Romero CNP [Advanced Practice Nurse] - Cardiac Rehab - Cardiac Rehab Cardiac Rehab: Phase I consult completed. Patient was educated on why Cardiac Rehabilitation is beneficial to his/her health. Participating in a cardiac rehabilitation can improve the following: strengthen your heart, improve ejection fraction, weight reduction, decrease cholesterol levels, lower blood pressure, lower blood sugar, improve stamina, and enhance self-image. If he/she has any questions, they were instructed to call [facility] at [phone]. <Yuan Figueroa - Last Filed: 03/01/19 15:06> Date of Encounter: 03/01/19 - Attending Attestation I have personally performed a face to face evaluation on this patient. I have reviewed and agree with the documented findings and care plan as documented by the ASSOCIATE PATHOLOGIST. History and Exam by me shows: 63-year-old pleasant female with history of CAD status post stent presenting with atypical chest pain. EKG shows sinus rhythm with right bundle branch block and no acute ST-T changes. Troponin negative I agree with pharmacological nuclear stress test Thanks for the consult, please call with questions. Yuan Figueroa MD [facility] Assessment and Plan Discussion w patient/family: The assessment and plan as outlined above was discussed with the patient and/or family members who expressed understanding and agreement. All questions were answered. Thank you for involving us in the care of your patient. Please call with any questions. History of Present Illness History of present illness: Ms. Serna is a 63 year old female All Systems Review: The remainder of the systems were reviewed and are negative Physical Examination Vital Signs, Last 4 Hours Temp Pulse Resp BP Pulse Ox 03/01/19 11:08 98.4 F 101 18 119/55 93 Results 03/01/19 01:19 03/01/19 01:19 Lab Results 03/01/19 03/01/19 03/01/19 01:19 01:19 01:19 WBC 5.2 Hgb 11.4 L Hct 35.3 Plt Count 324 Sodium 139 Potassium 3.7 Chloride 99 Carbon Dioxide 30 H BUN 17 Creatinine 1.20 Glucose 232 H Calcium 9.6 Magnesium 1.9 Total Bilirubin 0.3 AST 12 L ALT 8 Alkaline Phosphatase 31 L Cardiac Rehab - Cardiac Rehab Cardiac Rehab: Phase I consult completed. Patient was educated on why Cardiac Rehabilitation is beneficial to his/her health. Participating in a cardiac rehabilitation can improve the following: strengthen your heart, improve ejection fraction, weight reduction, decrease cholesterol levels, lower blood pressure, lower blood sugar, improve stamina, and enhance self-image. If he/she has any questions, they were instructed to call [facility] at [phone].
--- NOTE | 2019-03-01 18:25 | Internal Med Progress Note ---
Hospitalist Progress Note - Encounter Date of Encounter: 03/01/19 Time of Encounter: 09:15 - Subjective Interval History: Ms Serna is currently hospitalized for chest pain. She remains moderate to high risk Ms Serna is very upset. She continues to have severe midsternal chest pain. No fever or chills. Took her own nitro this AM. Pain radiates to neck. Nitro helps some. - Exam Vitals: Temp Pulse Resp BP Pulse Ox 99.2 F 100 18 101/62 94 03/01/19 16:44 03/01/19 16:44 03/01/19 16:44 03/01/19 16:44 03/01/19 16:44 Exam: General: Alert and oriented. Moderate distress due to pain. Skin: Normal color, no rash, H: Normocephalic. EENT: EOMI, Mucus membranes moist. Cardiovascular: Normal S1 & S2, no murmurs Pulse regular. Lungs: Normal breath sounds, no wheezes or crackles. Abdomen: Soft, non-tender, Normal bowel sounds. Extremities: No deformity, no edema or tenderness, Neurological: Normal cognition and motor skills. Pulses: radial pulses normal +2. Rest of the physical exam is non contributory - Assessment and Plan (1) Chest pain Current Visit: Yes Status: Suspected Assessment and Plan: Pt with prior hx of CAD - here with substernal chest pain. Will consult cardiology at this time. Continue PRN nitro and home meds. ASA Due to pain and hx of RA will get CTA of aorta Hydrate after. (2) CAD (coronary artery disease) Current Visit: Yes Status: Acute Assessment and Plan: As above (3) Diabetes Current Visit: Yes Status: Chronic Assessment and Plan: Continue monitor blood sugars and treat. She can use her own pump. (4) HTN (hypertension) Current Visit: Yes Status: Chronic Assessment and Plan: Continue home meds. (5) CHF (congestive heart failure) Current Visit: Yes Status: Chronic Assessment and Plan: Does not appear to be in exacerbation. (6) Rheumatoid arthritis Current Visit: Yes Status: Chronic Assessment and Plan: Chronic issue (7) Fibromyalgia Current Visit: Yes Status: Chronic Assessment and Plan: stable and chronic - Time Spent with Patient Total time spent is greater than 50% in coordination of care (as documented) at patient's floor/unit and/or counseling patient: Internal Medicine: Result - Labs CBC & Chem 7: 03/01/19 01:19 03/01/19 01:19 Labs: Short CBC 03/01/19 Range/Units 01:19 WBC 5.2 (4.3-11.1) K/mcL Hgb 11.4 L (11.5-15.4) g/dL Hct 35.3 (35.3-44.9) % Plt Count 324 (140-400) K/mcL Neutrophils # 3.6 (1.6-8.9) K/mcL BMP 03/01/19 01:19 Sodium 139 Potassium 3.7 Chloride 99 Carbon Dioxide 30 H BUN 17 Creatinine 1.20 Glucose 232 H Calcium 9.6 Liver Function 03/01/19 Range/Units 01:19 Total Bilirubin 0.3 (0.3-1.0) mg/dL Direct Bilirubin 0.0 (0.0-0.2) mg/dL AST 12 L (13-39) Units/L ALT 8 (7-52) Units/L Alkaline Phosphatase 31 L (34-104) Units/L Albumin 3.3 L (3.5-5.7) g/dL - Impressions Impressions CT Dissection 03/01/19 11:15 IMPRESSION: 1. No aortic dissection or aneurysm. 2. 8.2 x 5.3 cm left ovarian cyst. Recommend follow-up pelvic MRI with IV contrast. 3. Cholecystectomy. D/ / 03/01/2019 11:49:58 Yobani Flores MD / [facility] Interpreting Provider: Yobani Flores MD Consult Discharge Plan - Plan Referrals: Arnie Romero, DEBIT AGENT [Advanced Practice Nurse] - (1) Chest pain Qualifiers: Chest pain type: chest pain due to myocardial ischemia Ischemic chest pain type: stable angina pectoris Qualified Code(s): I20.8 - Other forms of angina pectoris (2) CAD (coronary artery disease) Qualifiers: Coronary Disease-Associated Artery/Lesion type: [place] artery [place] vs. transplanted heart: [place] heart Associated angina: with stable angina Qualified Code(s): I25.118 - Atherosclerotic heart disease of [place] coronary artery with other forms of angina pectoris (3) Diabetes Qualifiers: Diabetes mellitus type: type 2 Diabetes mellitus chcf insulin use: with passport application examiner use Diabetes mellitus complication status: with hyperglycemia Qualified Code(s): E11.65 - Type 2 diabetes mellitus with hyperglycemia; Z79.4 - snf (current) use of insulin (4) HTN (hypertension) Qualifiers: Hypertension type: essential hypertension Qualified Code(s): I10 - Essential (primary) hypertension (5) CHF (congestive heart failure) Qualifiers: Heart failure type: systolic Heart failure chronicity: chronic Qualified Code(s): I50.22 - Chronic systolic (congestive) heart failure (6) Rheumatoid arthritis Qualifiers: Rheumatoid arthritis location: multiple sites Rheumatoid factor presence: unspecified presence Qualified Code(s): M06.9 - Rheumatoid arthritis, unspecified
[2019-03-01] MEDS: Insulin DETEMIR 100 UNIT/ML X5UNITS SQ SCH (20:32)
[2019-03-01] MEDS ORDERED: Aspirin 81 MG TAB.CHEW PO SCH (21:00)
--- NOTE | 2019-03-01 21:57 | Electrocardiograph Report ---
[address] [address] Test Date: 2019-03-01 Pat Name: Aminta Serna Department: 113 Room: 3B36 Gender: F [employer] Lab[employer]: : 1955 Requested By: Dave Ivory Order Number: [id number] Reading MD: Vanessa Uribe Measurements Intervals [place] Rate: 92 P: 38 MI: 200 QRS: 105 QRSD: 124 T: 3 QT: 369 QTc: 419 Interpretive Statements SINUS RHYTHM MARKED RIGHT AXIS DEVIATION [QRS AXIS > 100] RIGHT BUNDLE BRANCH BLOCK [120+ ms QRS DURATION, UPRIGHT V1, 40+ ms S IN I/aVL/V4/V5/V6] Electronically Signed On 03-01-2019 21:56:13 EDT by Vanessa Uribe
[2019-03-02] MEDS: *HR* Heparin 5,000 UNIT/ML VIAL SQ SCH (05:59)
[2019-03-02] MEDS: Folic Acid 1 MG TABLET PO SCH (08:35)
[2019-03-02] MEDS: Loratadine 10 MG TABLET PO SCH (08:36)
[2019-03-02] MEDS: hydroCHLOROthiazide 25 MG TABLET PO SCH (08:36)
[2019-03-02] MEDS: Isosorbide MONOnitrate (24 HR) 60 MG TAB.ER.24H PO SCH (08:36)
[2019-03-02] MEDS: Cholecalciferol (D-3) 1,000 UNIT (25MCG) TABLET PO SCH (08:36)
[2019-03-02] MEDS: *HR* OxyCODONE/APAP 7.5/325 TABLET PO PRN ×3 (08:42→15:34)
[2019-03-02] MEDS: Insulin LISPRO 300 UNITS/3 ML VIAL SQ SCH ×4 (08:43→11:13)
--- NOTE | 2019-03-02 11:12 | Cardiology Progress Note ---
Date of Encounter: 03/02/19 Time of Encounter: 11:10 Assessment and Plan (1) Chest pain Status: Suspected C/o chest pain similar to previous [place]. EKG with no acute ST changes. Troponin negative. Prior testing: [facility] 10/2013: LM - nl. LAD - 30% proximal, 50% mid. D1 - 50% stenosis (small vessel). CX - mid 100%. OM2 fills via left to left collaterals. RCA - mid 99% stenosis (JUAN ANTONIO placed). [facility]TE 12/2013:EF 60%. Mild MR and TR. Mild pulmonary hypertension. Stress test 07/2014: Large sized, severe intensity partially reversible in the inferior and inferolateral segments. Moderate buster-infarct ischemia. Today she is feeling better. Chest pain free. Stress test this admission negative for ischemia. Prior large infarct in the inferior segments as seen previously. EF 61%. Recommend TTE out-pt setting. Asa, statin, bb. Increase imdur. Pt agrees with plan. Out-pt f/u will be coordinated. Qualifiers: Chest pain type: chest pain due to myocardial ischemia Ischemic chest pain type: stable angina pectoris Qualified Code(s): I20.8 - Other forms of angina pectoris (2) CAD (coronary artery disease) Status: Acute See plan above. Qualifiers: Coronary Disease-Associated Artery/Lesion type: [place] artery [place] vs. transplanted heart: [place] heart Associated angina: with stable angina Qualified Code(s): I25.118 - Atherosclerotic heart disease of [place] coronary artery with other forms of angina pectoris Discussion w patient/family: The assessment and plan as outlined above was discussed with the patient and/or family members who expressed understanding and agreement. All questions were answered. Thank you for involving us in the care of your patient. Please call with any questions. Subjective Principal diagnosis: chest pain Interval history: Pt underwent stress test this morning. States that she is is a rheumatoid arthritis crisis. She is feeling much better and denies chest pain. Objective Vital Signs, Last 4 Hours Temp Pulse Resp BP Pulse Ox 03/02/19 08:51 98 F 89 15 119/43 98 General: Conversant, No Apparent Distress HEENT: Atraumatic, Normocephaly, Mucus Membranes Moist Neck: No JVD, Normal carotid pulses Cardiac: Reg Rate and Rhythm, Normal S1 and S2, No Murmur Lungs: Normal Breath Sounds, No Wheeze, Rales, Rhonchi Neuro: Alert and responsive, No focal deficits noted Abdomen: Soft, Non-Tender Skin: No rashes noted on visualized skin Musculoskeletal: No Chest Wall Tenderness Extremities: No Clubbing, No Cyanosis, No Edema, Normal Pulses Results 03/01/19 01:19 03/01/19 01:19 - Imaging and Cardiology Stress Test: pending Consult Discharge Plan - Plan Referrals: Arnie Romero RN NEONATAL [Advanced Practice Nurse] - (Please contact your primary care physician and make a hospital follow up appointment within 7-10 days) Prescriptions: Isosorbide MONOnitrate (24 HR) [Imdur] 90 mg PO DAILY #45 tab.er.24h Transmission Status: Received by [facility] Cardiac Rehab - Cardiac Rehab Cardiac Rehab: Phase I consult completed. Patient was educated on why Cardiac Rehabilitation is beneficial to his/her health. Participating in a cardiac rehabilitation can improve the following: strengthen your heart, improve ejection fraction, weight reduction, decrease cholesterol levels, lower blood pressure, lower blood sugar, improve stamina, and enhance self-image. If he/she has any questions, they were instructed to call [facility] at [phone].
[2019-03-02 11:16] VITALS: BP 91/51
--- NOTE | 2019-03-02 14:02 | Discharge Summary ---
- NOTES TO OUTPATIENT PROVIDER Notes to Outpatient Provider: Pt presented with chest discomfort. Stress test negative. Imdur increased and to have outpatient follow up. Date of Encounter: 03/02/19 Time of Encounter: 13:58 - Discharge Diagnosis (1) Chest pain Priority: Primary Status: Suspected Qualifiers: Chest pain type: chest pain due to myocardial ischemia Ischemic chest pain type: stable angina pectoris Qualified Code(s): I20.8 - Other forms of angina pectoris (2) CAD (coronary artery disease) Priority: Secondary Status: Chronic Qualifiers: Coronary Disease-Associated Artery/Lesion type: [place] artery [place] vs. transplanted heart: [place] heart Associated angina: with stable angina Qualified Code(s): I25.118 - Atherosclerotic heart disease of [place] coronary artery with other forms of angina pectoris (3) Diabetes Priority: Secondary Status: Chronic Qualifiers: Diabetes mellitus type: type 2 Diabetes mellitus [facility] insulin use: with [facility] use Diabetes mellitus complication status: with hyperglycemia Qualified Code(s): E11.65 - Type 2 diabetes mellitus with hyperglycemia; Z79.4 - residential (current) use of insulin (4) HTN (hypertension) Priority: Secondary Status: Chronic Qualifiers: Hypertension type: essential hypertension Qualified Code(s): I10 - Essential (primary) hypertension (5) CHF (congestive heart failure) Priority: Secondary Status: Chronic Qualifiers: Heart failure type: systolic Heart failure chronicity: chronic Qualified Code(s): I50.22 - Chronic systolic (congestive) heart failure (6) Rheumatoid arthritis Priority: Secondary Status: Chronic Qualifiers: Rheumatoid arthritis location: multiple sites Rheumatoid factor presence: unspecified presence Qualified Code(s): M06.9 - Rheumatoid arthritis, unspecified (7) Fibromyalgia Priority: Secondary Status: Chronic Hospital course: Ms. Serna is a 63 year old female with hx of CAD presented to ED with chest pain. She was placed in observation. Ms Serna was placed in observation. She continued to have chest pain initially. She was evaluated by cardiology and stress test was ordered. Stress was negative and symptoms improved. Imdur was increased. Today she is afebrile. She is ready for discharge home. Discharge discussed with: patient - Time Spent with Patient Total time spent providing and/or coordinating discharge services: - Discharge Medications Prescriptions: New Isosorbide MONOnitrate (24 HR) [Imdur] 90 mg PO DAILY #45 tab.er.24h Lidocaine Patch [Lidoderm 5% patch] 1 each TP DAILY adh..patch Continued Cholecalciferol (D-3) [Vitamin D] 2,000 unit PO DAILY OxyCODONE/APAP 7.5/325 [Percocet 7.5/325 MG] 1 each PO Q6H PRN PRN Reason: Mild To Moderate Pain Insulin LISPRO [HumaLOG] 5 units SQ TID PRN PRN Reason: SLIDING SCALE Fluticasone Propionate Nasal [Flonase] 1 spr NS DAILY PRN PRN Reason: Allergy Symptoms Aspirin Enteric Coated [Aspirin EC] 81 mg PO DAILY Folic Acid 1 mg PO DAILY Atorvastatin Calcium [Lipitor] 80 mg PO HS Cetirizine HCl [All Day Allergy] 10 mg PO DAILY Docusate [Colace] 100 mg PO BID Montelukast [Singulair] 10 mg PO HS Nitroglycerin [Nitrostat] 0.4 mg SL Q5M PRN PRN Reason: Chest Pain hydroCHLOROthiazide [Hydrochlorothiazide] 12.5 mg PO DAILY Tizanidine HCl [Zanaflex] 4 mg PO TID PRN PRN Reason: pain Omeprazole [PriLOSEC] 40 mg PO DAILY Levothyroxine [Synthroid] 100 mcg PO 0630 Metoprolol Tartrate 50 mg PO DAILY Discontinued Tofacitinib Citrate [Xeljanz Xr] 11 mg PO DAILY Isosorbide MONOnitrate (24 HR) [Imdur] 60 mg PO DAILY Home Medications: Aspirin Enteric Coated [Aspirin EC] 81 mg PO DAILY 03/25/17 [History] Atorvastatin Calcium [Lipitor] 80 mg PO HS 03/25/17 [History] Cetirizine HCl [All Day Allergy] 10 mg PO DAILY 03/25/17 [History] Cholecalciferol (D-3) [Vitamin D] 2,000 unit PO DAILY 03/25/17 [History] Docusate [Colace] 100 mg PO BID 03/25/17 [History] Fluticasone Propionate Nasal [Flonase] 1 spr NS DAILY PRN 03/25/17 [History] Folic Acid 1 mg PO DAILY 03/25/17 [History] Insulin LISPRO [HumaLOG] 5 units SQ TID PRN 03/25/17 [History] Montelukast [Singulair] 10 mg PO HS 03/25/17 [History] Nitroglycerin [Nitrostat] 0.4 mg SL Q5M PRN 03/25/17 [History] OxyCODONE/APAP 7.5/325 [Percocet 7.5/325 MG] 1 each PO Q6H PRN 03/25/17 [History] Omeprazole [PriLOSEC] 40 mg PO DAILY 02/28/19 [History] Tizanidine HCl [Zanaflex] 4 mg PO TID PRN 02/28/19 [History] hydroCHLOROthiazide [Hydrochlorothiazide] 12.5 mg PO DAILY 02/28/19 [History] Levothyroxine [Synthroid] 100 mcg PO 0630 03/01/19 [History] Metoprolol Tartrate 50 mg PO DAILY 03/01/19 [History] Isosorbide MONOnitrate (24 HR) [Imdur] 90 mg PO DAILY #45 tab.er.24h 03/02/19 [Rx] Lidocaine Patch [Lidoderm 5% patch] 1 each TP DAILY adh..patch 03/02/19 [Rx] Allergies/Adverse Reactions: Allergy/AdvReac Type Severity Reaction Status Date / Time aripiprazole [From Abilify] AdvReac See Verified 03/01/19 10:57 Comments bupropion [From Wellbutrin] AdvReac See Verified 03/01/19 10:57 Comments latex AdvReac Rash Verified 03/01/19 10:57 piroxicam [From Feldene] AdvReac Muscle Pain Verified 03/01/19 10:57 Date of admission: 02/28/19 03:12 Primary care physician: PCP NONE Consults: 03/01/19 09:10 Consult to Cardiology [CONS] Routine Comment: Consulting Provider: Cardiology Marilia Reason for Consult: Active chest pain, RA patient and type 1 DM. Had stress ordered, patient was taking her own nitro in her room this morning. Call Completed: Yes Discharging clinician: Dave Ivory Anticipated date of discharge: 03/02/19 - Constitutional Vitals: Temp Pulse Resp BP Pulse Ox 97.8 F 68 15 91/51 97 03/02/19 11:11 03/02/19 11:11 03/02/19 11:11 03/02/19 11:11 03/02/19 11:11 General appearance: Present: A&O X 3, answers questions appropriately Exam: See below - Head Head exam: Present: normocephalic - Eye Eye exam: Present: EOMI, conjuntiva pink - ENT ENT exam: Present: mucous membranes moist - Neck Neck exam general surgery: Present: supple - Respiratory Respiratory exam: Present: CTAB. Absent: wheezes - Cardiovascular Cardiovascular exam: Present: RRR. Absent: tachycardia - GI/Abdominal GI/Abdominal exam: Present: soft. Absent: tenderness - Extremities Exam Extremities exam: Present: warm. Absent: tenderness - Neurological Exam Neurological exam: Present: alert, oriented X3 - Skin Skin exam: Present: dry, warm - Patient Status Disposition: Home, Self-Care Condition: Good Functional capacity at discharge: independent ambulation Overall status at discharge: patient is progressing back to baseline - Discharge Instructions Follow Up With: Arnie Romero TRAINING FACILITATOR [Advanced Practice Nurse] - (Please contact your primary care physician and make a hospital follow up appointment within 7-10 days) - Diet and Activity Activity: increase activity as tolerated Diet: advance to your usual diet
== END 2019-03-02 15:38 | disposition home or self-care (01) ==
LOC: EMEROOARM 00:04 → 3BNU 00:04 → SUATTDRO 03:12 → 3BNU 04:46
PROVIDERS: ADMIT Pharmacist; ATTEND Internal Medicine